=== PATIENT | male | born 1990 | race Caucasian/White ===

== ENCOUNTER 2017-03-30 14:15 | Inpatient (IN) ==
[2017-03-30 14:57] LABS: Hematocrit 47.4 % (37.5-50.1); Hemoglobin 15.1 g/dL (12.9-16.9); Mean Corpuscular HGB Conc 31.9 g/dL (31.6-35.5); Mean Corpuscular Hemoglobin 31.3 pg (28.0-33.3); Mean Corpuscular Volume 98.1 fL (83.0-100.0); Mean Platelet Volume 11.6 fL (9.4-12.4); Platelet Count 273 K/mcL (140-400); Red Blood Count 4.83 M/mcL (4.19-5.50); Red Cell Distribution Width 12.7 % (11.5-14.5)
[2017-03-30 15:10] LABS: Acetaminophen < 1.0 mcg/mL (10-30); BUN/Creatinine Ratio 13 (6-26); Blood Urea Nitrogen 31 mg/dL (6-20); Calcium 9.2 mg/dL (8.6-10.3); Carbon Dioxide 23 mEq/L (23-29); Chloride 101 mEq/L (98-107); Ethanol < 10 mg/dL (0-10); Glucose 104 mg/dL (70-105); Osmolality,Calculated 293 (280-300); Potassium 8.5 mEq/L (3.5-5.1); Salicylate < 5.0 mg/dL (15.0-30.0); Sodium 138 mEq/L (136-145); eGFR For African Americans 38 (> 60); eGFR For Non-African Americans 32 (> 60)
[2017-03-30] MEDS ORDERED: 0.9 % Sodium Chloride 1,000 ML ONE ×2 (15:14→15:27)
[2017-03-30] MEDS ORDERED: Insulin Human Regular 10 UNIT in 0.9 % Sodium Chloride 10 ML IV ONE (15:20)
[2017-03-30] MEDS ORDERED: Albuterol 2.5 MG/3 ML NEBULIZER IH ONE (15:21)
[2017-03-30] MEDS ORDERED: *HR* Dextrose 50 % in Water (Syg) 50 ML SYRINGE IVP ONE (15:45)
[2017-03-30 15:49] LABS: Creatine Kinase 5811 Units/L (30-223)
--- NOTE | 2017-03-30 15:51 | Emergency Department Note ---
START Narrative - START START: I examined this patient and my medical decision-making was reviewed with the MANAGER BOOKS/PA/Advanced Practice Nurse/Resident Physician. I agree with the documented findings, disposition and treatment plan as described except to the extent set forth below. ED attending: Patient's emergency medicine resident Dr. FRANC GOMES Please see copy of this note for H&P evaluation and management and ED disposition. We both had independent hygh-vs-ygma time in contact with this patient. Briefly: 26 year old male in police custody by EMS was found down by his roommate, well-known history of illicit substance use and abuse. He was somnolent upon arrival and slightly hypotensive with a systolic in the 90s. He was slightly pale and diaphoretic. IV access was established there were no track lane seen on his arms, police service technician said that this person usually snorts his drugs. Accu-Chek glucose was 88. Patient is given 2 L normal saline. EKG shows sinus tachycardia with some peaked T waves in the lateral leads however there is no old EKG available for comparison. There is normal QT corrected and normal QRS duration. Of note critically the following elevations are present at this time notified by lab: Potassium was 8.5 and it was confirmed not hemolyzed. CK was approximately 5100. Patient will continue to get IV saline boluses he got calcium gluconate insulin and dextrose for hyperkalemia protocol. Providing 50 minutes of critical care service with this patient, admission and anticipated, head CT and other labs
[2017-03-30 16:04] LABS: Amphetamine Screen,Urine Negative ng/mL (Cutoff=1000); Barbiturate Screen,Urine Negative ng/mL (Cutoff=200); Benzodiazepines Screen,Urine Negative ng/mL (Cutoff=200); Cannabinoid Screen,Urine Positive ng/mL (Cutoff = 50); Cocaine Screen,Urine Positive ng/mL (Cutoff= 300); Opiate Screen,Urine Positive ng/mL (Cutoff=300); Phencyclidine Screen,Urine Negative ng/mL (Cutoff=25)
[2017-03-30] MEDS ORDERED: 0.9 % Sodium Chloride 1,000 ML IVC ONE (16:25)
[2017-03-30] MEDS ORDERED: Sodium Bicarbonate 150 MEQ in D5% in Water 1,000 ML IVC STA (16:28)
[2017-03-30 16:32] LABS: VBG HCO3 20 mEq/L (21-27); VBG PCO2 47 mmHg (41-51); VBG PH 7.24 pH Units (7.32-7.42); VBG PO2 199 mmHg (25-50)
--- NOTE | 2017-03-30 16:32 | Emergency Department Note ---
Disposition Clinical Impression: Hyperkalemia, Drug abuse Rhabdomyolysis Qualifiers: Rhabdomyolysis type: non-traumatic Qualified Code(s): M62.82 - Rhabdomyolysis Pneumothorax Qualifiers: Pneumothorax type: unspecified pneumothorax Qualified Code(s): J93.9 - Pneumothorax, unspecified Disposition: Admitted As Inpatient Condition: Good General Adult HPI - General Chief complaint: ED Medical Clearance Stated complaint: drug use Time Seen by Provider: 03/30/17 14:24 Source: EMS Limitations: no limitations Nursing Notes Reviewed: Yes Vital Signs Reviewed: Yes - History of Present Illness HPI Narrative: Patient presents by police for evaluation of altered mental status. They were called for him being unable to wake up while he was sleeping on his friend's couch. Patient's last known well was yesterday. Upon arrival in prior to giving Narcan they did a sternal rub and the patient woke up and was responsive. The patient was placed on a cot and initial triage labs were drawn. Patient's basic metabolic panel with potassium of 8. Not hemolyzed. Peaked T waves on EKG. Calcium, insulin and dextrose and albuterol have been given. Patient complains of not being able to hear. Patient states that he drank a lot of [place] yesterday. Patient does not admit to other drug use however the police are familiar with him and says that he will snort whatever he can get his hands on. Is known to have cocaine, gabapentin, marijuana in his system. Patient has no complaints of chest pain shortness of breath or belly pain is time. Pain Scale: 0 - Related Data Home Medications Medication Instructions Recorded Confirmed No Known Home Drugs 03/30/17 03/30/17 Allergies Allergy/AdvReac Type Severity Reaction Status Date / Time No Known Allergies Allergy Verified 03/30/17 15:20 Limitations: ROS unobtainable due to patients medical condition Past Medical History - Past Medical History Medical history: Reports: non-contributory Psychiatric history: Reports: no psych history - Social History Smoking Status: Unknown if ever smoked Smokeless Tobacco Status: No Alcohol use: Reports: unknown Drug use: Reports: IV Drug Use Physical Exam General: Arouses to stimulation. Cannot hear. Appears to be reading lips and answering questions. Head: Normocephalic Atraumatic Eyes: PERRL, EOMI ENT: Airway patent, no stridor; nose exam unremarkable Neck: supple, no meningismus Chest: Lungs clear to auscultation bilateral Cardiac: Regular rhythm, no murmurs, rubs or gallops Abdomen: soft, nontender, nondistended; no guarding, rebound, or tenderness to percussion Musculoskeletal: Calves symmetric, nontender, no palpable cord Skin: No rash, normal skin tone Neuro: Alert and Oriented to person, place, and time; No focal deficit, CN 2-12 symmetric and intact - General Limitations: no limitations Course - Reevaluation(s) Reevaluation #1: Patient is improved with medications. hearing continues to improve. Patient will receive head CT, sodium bicarbonate drip, admission. Reevaluation #2: During evaluation for low oxygen level the patient was found to have a right pneumothorax with greater than 3 cm of collapse. Patient will require chest tube. The patient mental status has improved and he understands the need for chest tube. Patient signed informed consent and agrees to moderate sedation as he is anxious and is moving about and potentially causing more harm to himself or staff. Small caliber chest tube was placed without event. The patient tolerated the procedure well. No complications. Vital Signs Temperature 98 F 03/30/17 14:19 Pulse Rate 114 03/30/17 14:19 Respiratory Rate 8 03/30/17 14:19 Blood Pressure 109/75 03/30/17 14:19 O2 Sat by Pulse Oximetry 80 03/30/17 14:19 Temperature 98.8 F 03/30/17 23:26 Pulse Rate 87 03/30/17 23:26 Respiratory Rate 14 03/30/17 23:26 Blood Pressure 125/80 03/30/17 23:26 O2 Sat by Pulse Oximetry 99 03/30/17 23:26 Oxygen Delivery Oxygen Delivery Nasal Cannula Procedures - Chest Tube Chest Tube 1 Chest Tube Location: right Size of Tube (cm): 7 Chest Tube Prep: sterile drapes applied, other Local Anesthetic: lidocaine 1%, with epi Incision Made With: #11 blade Post Procedure: sutured to skin, sterile dressing applied Tube Drainage: none Post Procedure CXR?: Yes Patient Tolerated Procedure: Yes Medical Decision Making - Lab Data Result diagrams: 03/30/17 14:41 03/30/17 22:07 Lab Results 03/30/17 03/30/17 03/30/17 Range/Units 14:41 14:41 15:49 WBC 21.1 H (4.3-11.1) K/mcL RBC 4.83 (4.19-5.50) M/mcL Hgb 15.1 (12.9-16.9) g/dL Hct 47.4 (37.5-50.1) % MCV 98.1 (83.0-100.0) fL MCH 31.3 (28.0-33.3) pg MCHC 31.9 (31.6-35.5) g/dL RDW 12.7 (11.5-14.5) % Plt Count 273 (140-400) K/mcL MPV 11.6 (9.4-12.4) fL Immature Gran % 0.5 (0-4) % Seg Neutrophils % 85.2 % Lymphocytes % 3.5 % Monocytes % 10.7 % Eosinophils % 0.0 % Basophils % 0.1 % Neutrophils # 17.7 H (1.6-8.9) K/mcL Lymphocytes # 0.7 (0.6-4.6) K/mcL Monocytes # 2.2 H (0.0-1.3) K/mcL Eosinophils # 0.0 (0.0-0.6) K/mcL Basophils # 0.0 (0.0-0.2) K/mcL VBG pH (7.32-7.42) pH Units VBG pCO2 (41-51) mmHg VBG pO2 (25-50) mmHg VBG HCO3 (21-27) mEq/L Sodium 138 (136-145) mEq/L Potassium 8.5 H* (3.5-5.1) mEq/L Chloride 101 (98-107) mEq/L Carbon Dioxide 23 (23-29) mEq/L BUN 31 H (6-20) mg/dL Creatinine 2.46 H (0.70-1.30) mg/dL Est GFR ( Amer) 38 L (> 60) Est GFR (Non-Af Amer) 32 L (> 60) BUN/Creatinine Ratio 13 (6-26) Glucose 104 (70-105) mg/dL Calculated Osmolality 293 (280-300) Calcium 9.2 (8.6-10.3) mg/dL Total Bilirubin (0.3-1.0) mg/dL Direct Bilirubin (0.0-0.2) mg/dL Indirect Bilirubin (0.0-1.2) mg/dL AST (13-39) Units/L ALT (7-52) Units/L Alkaline Phosphatase (34-104) Units/L Creatine Kinase 5811 H (30-223) Units/L Serum Total Protein (6.4-8.9) g/dL Albumin (3.5-5.7) g/dL Globulin (2.4-3.5) g/dL Albumin/Globulin Ratio (1.1-2.2) Urine Color (Yellow) Urine Clarity (Clear) Urine pH (5.0-8.0) pH Units Ur Specific Ham[place] (1.010-1.025) Urine Protein (Neg-Trace) mg/dL Urine Glucose (UA) (Normal) mg/dL Urine Ketones (Negative) mg/dL Urine Blood (Negative) Urine Nitrite (Negative) Urine Bilirubin (Negative) Urine Urobilinogen (Normal) mg/dL Ur Leukocyte Esterase (Negative) Urine Microscopic RBC (0-3) per hpf Urine Microscopic WBC (0-3) per hpf Ur Squamous Epith Cells (None-Few) per lpf Urine Bacteria (None-Few) per hpf Hyaline Casts (None-Few) per lpf Ur Culture Indicated? (NO) Salicylates < 5.0 L (15.0-30.0) mg/dL Urine Opiates Screen Positive H (Gepplq=333) ng/mL Acetaminophen < 1.0 L (10-30) mcg/mL Ur Barbiturates Screen Negative (Xlcqyt=108) ng/mL Ur Phencyclidine Scrn Negative (Cutoff=25) ng/mL Ur Amphetamines Screen Negative (Pzypef=9023) ng/mL U Benzodiazepines Scrn Negative (Pbajke=852) ng/mL Urine Cocaine Screen Positive H (Cutoff= 300) ng/mL U Marijuana (THC) Screen Positive H (Cutoff = 50) ng/mL Ethyl Alcohol < 10 (0-10) mg/dL 03/30/17 03/30/17 03/30/17 Range/Units 15:49 16:28 16:36 WBC (4.3-11.1) K/mcL RBC (4.19-5.50) M/mcL Hgb (12.9-16.9) g/dL Hct (37.5-50.1) % MCV (83.0-100.0) fL MCH (28.0-33.3) pg MCHC (31.6-35.5) g/dL RDW (11.5-14.5) % Plt Count (140-400) K/mcL MPV (9.4-12.4) fL Immature Gran % (0-4) % Seg Neutrophils % % Lymphocytes % % Monocytes % % Eosinophils % % Basophils % % Neutrophils # (1.6-8.9) K/mcL Lymphocytes # (0.6-4.6) K/mcL Monocytes # (0.0-1.3) K/mcL Eosinophils # (0.0-0.6) K/mcL Basophils # (0.0-0.2) K/mcL VBG pH 7.24 L (7.32-7.42) pH Units VBG pCO2 47 (41-51) mmHg VBG pO2 199 H (25-50) mmHg VBG HCO3 20 L (21-27) mEq/L Sodium 138 (136-145) mEq/L Potassium 6.3 H D (3.5-5.1) mEq/L Chloride 108 H (98-107) mEq/L Carbon Dioxide 22 L (23-29) mEq/L BUN 32 H (6-20) mg/dL Creatinine 2.11 H (0.70-1.30) mg/dL Est GFR ( Amer) 46 L (> 60) Est GFR (Non-Af Amer) 38 L (> 60) BUN/Creatinine Ratio 15 (6-26) Glucose 165 H (70-105) mg/dL Calculated Osmolality 297 (280-300) Calcium 8.3 L (8.6-10.3) mg/dL Total Bilirubin 0.6 (0.3-1.0) mg/dL Direct Bilirubin 0.2 (0.0-0.2) mg/dL Indirect Bilirubin 0.4 (0.0-1.2) mg/dL AST 132 H (13-39) Units/L ALT 100 H (7-52) Units/L Alkaline Phosphatase 60 (34-104) Units/L Creatine Kinase (30-223) Units/L Serum Total Protein 6.8 (6.4-8.9) g/dL Albumin 4.0 (3.5-5.7) g/dL Globulin 2.8 (2.4-3.5) g/dL Albumin/Globulin Ratio 1.4 (1.1-2.2) Urine Color Yellow (Yellow) Urine Clarity Clear (Clear) Urine pH 6.0 (5.0-8.0) pH Units Ur Specific [place] 1.024 (1.010-1.025) Urine Protein 30 H (Neg-Trace) mg/dL Urine Glucose (UA) Normal (Normal) mg/dL Urine Ketones Negative (Negative) mg/dL Urine Blood Large H (Negative) Urine Nitrite Negative (Negative) Urine Bilirubin Small H (Negative) Urine Urobilinogen Normal (Normal) mg/dL Ur Leukocyte Esterase Negative (Negative) Urine Microscopic RBC 0-3 (0-3) per hpf Urine Microscopic WBC 3-5 H (0-3) per hpf Ur Squamous Epith Cells Many H (None-Few) per lpf Urine Bacteria None Seen (None-Few) per hpf Hyaline Casts None Seen (None-Few) per lpf Ur Culture Indicated? NO (NO) Salicylates (15.0-30.0) mg/dL Urine Opiates Screen (Qedrsn=480) ng/mL Acetaminophen (10-30) mcg/mL Ur Barbiturates Screen (Ybastz=541) ng/mL Ur Phencyclidine Scrn (Cutoff=25) ng/mL Ur Amphetamines Screen (Exbgau=4396) ng/mL U Benzodiazepines Scrn (Tzdnfn=867) ng/mL Urine Cocaine Screen (Cutoff= 300) ng/mL U Marijuana (THC) Screen (Cutoff = 50) ng/mL Ethyl Alcohol (0-10) mg/dL
[2017-03-30] MEDS ORDERED: Naloxone 0.4 MG/ML INJ IVP ONE (16:35)
[2017-03-30] MEDS ORDERED: Ondansetron 4 MG/2 ML VIAL IVP ONE (16:36)
[2017-03-30 17:16] LABS: Albumin/Globulin Ratio 1.4 (1.1-2.2); Bilirubin,Direct 0.2 mg/dL (0.0-0.2); Bilirubin,Indirect 0.4 mg/dL (0.0-1.2); Bilirubin,Total 0.6 mg/dL (0.3-1.0); Calcium 8.3 mg/dL (8.6-10.3); Globulin 2.8 g/dL (2.4-3.5); Potassium 6.3 mEq/L (3.5-5.1); Total Protein 6.8 g/dL (6.4-8.9)
[2017-03-30] MEDS ORDERED: Lidocaine/EPI 1:100k 1% 20 ML VIAL INFILT ONE (18:35)
[2017-03-30] MEDS ORDERED: Lidocaine -MPF 1% 2 ML VIAL ONE (18:38)
[2017-03-30] MEDS ORDERED: Lidocaine/EPI 1:100k 1% 30 ML VIAL ONE (18:39)
[2017-03-30] MEDS ORDERED: *HR* FentaNYL (PF) 100 MCG/2 ML VIAL IVP ONE (18:49)
[2017-03-30] MEDS ORDERED: *HR* Midazolam HCl 2 MG/2 ML VIAL IVP ONE (18:49)
[2017-03-30 20:04] LABS: Bilirubin,Urine Small (Negative); Blood,Urine Large (Negative); Clarity,Urine Clear (Clear); Color,Urine Yellow (Yellow); Glucose,Urine (UA) Normal (Normal); Ketones,Urine Negative (Negative); Leukocyte Esterase,Urine Negative (Negative); Nitrite,Urine Negative (Negative); Protein,Urine 30 mg/dL (Neg-Trace); Specific Gravity,Urine 1.024 (1.010-1.025); Urobilinogen,Urine Normal (Normal)
[2017-03-30 20:06] LABS: Bacteria,Urine None Seen per hpf (None-Few); RBC,Urine 0-3 per hpf (0-3); Squamous Epithelial Cell,Urine Many per lpf (None-Few)
[2017-03-30 20:20] LABS: Hyaline Casts,Urine None Seen per lpf (None-Few)
--- NOTE | 2017-03-30 20:22 | Internal Med History&Physical ---
<Yosef Barrow - Last Filed: 03/30/17 22:21> Date of Encounter: 03/30/17 Time of Encounter: 20:20 Assessment and Plan (1) Drug abuse Current visit: Yes Status: Acute Patient with known history of drug abuse. patient found unresponsive at home by friend. Patient was able to be aroused with sternal rub by EMS prior to narcan administration. Patient given Narcan in ED patient on sodium bicarb drip. Utox positive for cocaine, opioids, and marijuana patient somnolent, able to be aroused but not consistently answering questions or participating in exam. patient mentation improved. Patient admits to marijuana, but denies knowing where opioids and cocaine came from. He reports hx of abuse. Vital signs stable sating well on nasal canula continue supportive treatment. (2) Pneumothorax Current visit: Yes Status: Acute Patient with hypoxia in ED. pneumothorax discovered on CXR Unclear cause, patient denies trauma, but does not remember anything that lead him to come into the hospital. Chest tube placed in ED with improvement of pneumothorax on subsequent CXR. continue chest tube to suction. Qualifiers: Pneumothorax type: unspecified pneumothorax Qualified Code(s): J93.9 - Pneumothorax, unspecified (3) Hyperkalemia Current visit: Yes Status: Acute Pt with Hyperkalemia on lab assessment K 8.2 on admission with peaked T waves on EKG patient given albuterol, calcium gluconate, insulin, Kayexcelate. on repeat testing K 6.3 EKG with improvement in Peaked T waves Will check K again now and BMP in the morning. (4) Rhabdomyolysis Current visit: Yes Status: Acute Patient with CK 5811 Patient with overdose, found down. patietn denies remembering what happened. continue IV fluid rehydration. Qualifiers: Rhabdomyolysis type: non-traumatic Qualified Code(s): M62.82 - Rhabdomyolysis (5) SIRS (systemic inflammatory response syndrome) Current visit: Yes Status: Acute Patient met SIRS criteria based on WBC count of 21.1 and Tachycardia to 100. No clear source of infection. CXR no signs of infection, urine no signs of infection, No diarrhea, dysuria, abd pain, no signs of cellulitis on exam. Blood cultures and LA ordered. CBC was ordered without diff. Called lab and added on diff. Broad spectrum abx (vanc and zosyn) ordered. Likely secondary to drug OD, but elevated WBC raises concern for Sepsis. will continue to monitor. If blood cultures positive consider ROBBIN to rule out endocarditis, however low suspicion as per hx pt snorts not injects his drugs, and no other minor rocha criteria met. Internal Medicine - H&P: HPI Chief complaint: OD, Pneumothorax Admitted From: Emergency Dept Plans for Post Hospital Care: Home History of present illness: Mr. Villatoro is a 26 year old male c known hx of drug abuse presents to the ED brought in by ems after being found unresponsive on friend's couch. Patient reports not remembering what happened. Last thing he remembers is sitting on the couch. Patient's UDS was positive for Coacine, opioids, and THC. Patient admits to THC, but states he does not know how the other substances got in his urine. He reports he used to abuse drugs but has tried to stay clean. He does admit to ETOH use last night. Patient was foudn to be hyperkalemic to 8.5 with peaked T waves on EKG. Patient given albuterol, calcium gluconate, insulin, Kayexcelate. On repeat testing K 6.3 EKG with improvement in Peaked T waves. Patient was hypoxic in the ED requiring supplemental oxygen. CXR revealed pneumothorax on the R. Chest tube placed with improvement of pneumothorax. Patient denies trauma, prior hx of pneumothorax. Patient reprots improvemnt in SOB, deneis chest pain, Nause, Diarrhea, dysuria, fever, cough, cold sxs. Past Med Surg Social Fam HX - Past Medical History Medical history: non-contributory Psychiatric history: no psych history - Social History Smoking Status: Unknown if ever smoked Smokeless Tobacco Status: No Alcohol use: unknown Drug use: IV Drug Use Internal Medicine - H&P: Meds No Known Home Drugs 03/30/17 [History] 3 Allergy/AdvReac Type Severity Reaction Status Date / Time No Known Allergies Allergy Verified 03/30/17 15:20 All Systems PM: A 10-system review of systems was performed and is negative for pertinent findings except as documented above in the HPI. - Constitutional Vitals: Temp Pulse Resp BP Pulse Ox 98 F 97 18 136/79 89 03/30/17 14:19 03/30/17 18:32 03/30/17 20:01 03/30/17 20:01 03/30/17 18:32 General appearance: Present: A&O X 3, no acute distress, answers questions appropriately - Head Head exam: Present: atraumatic, normocephalic - Eye Eye exam: Present: EOMI, PERRL, conjuntiva pink, sclera anicteric Pupils: Present: PERRL - Neck Neck exam general surgery: Present: supple, trachea midline. Absent: lymphadenopathy - Respiratory Respiratory exam: Present: decreased breath sounds (R lateral lung), CTAB. Absent: accessory muscle use, rales, rhonchi, wheezes - Cardiovascular Cardiovascular exam: Present: RRR, +S1, +S2. Absent: diastolic murmur, gallop, rubs, systolic murmur - GI/Abdominal GI/Abdominal exam: Present: normal bowel sounds, soft, no peritoneal signs. Absent: distended, tenderness - Extremities Exam Extremities exam: Present: warm, radial pulses palpable and symmetrical. Absent : calf tenderness, cyanotic, pedal edema - Neurological Exam Neurological exam: Present: CN II-XII intact, oriented X3, no focal deficits. Absent: facial droop, speech deficit - Skin Skin exam: Present: dry, intact Internal Med - H&P Results - Labs CBC & Chem 7: 03/30/17 14:41 03/30/17 16:36 - Impressions ITS Impressions Chest X-Ray 03/30/17 19:33 IMPRESSION: Placement of small bore pleural catheter with evacuation of the pneumothorax. D/ / Ridge Abdi MD / Ridge Abdi MD Interpreting Provider: Ridge Abdi MD <Rai Garland P - Last Filed: 03/31/17 04:21> Date of Encounter: 03/31/17 Internal Medicine - H&P: HPI History of present illness: Mr. Villatoro is a 26 year old male All Systems PM: A 10-system review of systems was performed and is negative for pertinent findings except as documented above in the HPI. - Constitutional Vitals: Temp Pulse Resp BP Pulse Ox 98.9 F 101 16 114/80 92 03/31/17 03:33 03/31/17 03:33 03/31/17 03:33 03/31/17 03:33 03/31/17 03:33 Internal Med - H&P Results - Labs CBC & Chem 7: 03/30/17 14:41 03/30/17 22:07 Labs: BMP 03/30/17 22:07 Potassium 5.6 H - Impressions ITS Impressions Chest X-Ray 03/30/17 19:33 IMPRESSION: Placement of small bore pleural catheter with evacuation of the pneumothorax. D/ / Ridge Abdi MD / Ridge Abdi MD Interpreting Provider: Ridge Abdi MD - Attending Attestation I examined this patient and my medical decision-making was reviewed with the Resident Physician. I agree with the documented findings, disposition and treatment plan as described except to the extent set forth below. i agree with resident physician assessment and plan
[2017-03-30 21:49] LABS: Basophils % 0.1 %; Immature Granulocytes % 0.5 % (0-4); Lymphocytes # 0.7 K/mcL (0.6-4.6); Lymphocytes % 3.5 %; Monocytes # 2.2 K/mcL (0.0-1.3); Monocytes % 10.7 %; Neutrophils # 17.7 K/mcL (1.6-8.9); Segmented Neutrophils % 85.2 %
[2017-03-31] MEDS: 0.9 % Sodium Chloride 1,000 ML IVC SCH ×2 (01:03→11:08)
[2017-03-31 04:10] LABS: Basophils % 0.1 %; Hematocrit 35.7 % (37.5-50.1); Immature Granulocytes % 0.5 % (0-4); Lymphocytes # 1.2 K/mcL (0.6-4.6); Mean Corpuscular HGB Conc 33.6 g/dL (31.6-35.5); Mean Corpuscular Hemoglobin 31.5 pg (28.0-33.3); Mean Corpuscular Volume 93.7 fL (83.0-100.0); Mean Platelet Volume 11.8 fL (9.4-12.4); Monocytes # 1.1 K/mcL (0.0-1.3); Monocytes % 8.3 %; Neutrophils # 11.1 K/mcL (1.6-8.9); Platelet Count 180 K/mcL (140-400); Red Blood Count 3.81 M/mcL (4.19-5.50); Red Cell Distribution Width 12.7 % (11.5-14.5); Segmented Neutrophils % 82.1 %
[2017-03-31 04:50] LABS: BUN/Creatinine Ratio 18 (6-26); Blood Urea Nitrogen 26 mg/dL (6-20); Carbon Dioxide 24 mEq/L (23-29); Chloride 106 mEq/L (98-107); Glucose 119 mg/dL (70-105); Osmolality,Calculated 294 (280-300); Potassium 4.3 mEq/L (3.5-5.1); Sodium 139 mEq/L (136-145); eGFR For African Americans > 60 (> 60); eGFR For Non-African Americans > 60 (> 60)
[2017-03-31] MEDS ORDERED: Nicotine 14 MG PATCH.TD24 TD SCH (09:15)
[2017-03-31] MEDS ORDERED: Ketorolac 30 MG/ML VIAL IVP ONE (09:41)
--- NOTE | 2017-03-31 10:08 | Procedure Note ---
Date of procedure: 03/31/17 Pre-op diagnosis: Pneumothorax Post-op diagnosis: same (Pneumothorax) Procedure: After explaining the procedure to patient and patient agreed and gave verbal consent and checking case smallbore pneumothorax to it was partially out and also can in my opinion that needed to come out because most likely is not working and with suture removal chest was easily removed without immediate complications and patient actually felt better after that. Checks x-ray as ordered for any complications. Anesthesia: none Surgeon: Cash Martínez Was there an advertising sales assistant present: No Estimated blood loss (cc): 0 Specimen: none Pathology: none sent Condition: stable
--- NOTE | 2017-03-31 10:10 | Pulmonology Consult Note ---
Date of Encounter: 03/31/17 Time of Encounter: 10:00 Assessment and Plan (1) Pneumothorax Current Visit: Yes Status: Resolved Patient was evaluated and is not clear what happened and why he has pneumothorax since patient does not remember anything and I have explained to him is unusual with a young man to have this degree of pneumothorax which has resolved on x-ray to my interpretation and because of the chest tube was partially out anyway, chest tube was removed without immediate complications and chest x-ray for follow-up was ordered. I have explained to him he might need a larger chest tube if pneumothorax still exist, if not then he will still need to be monitored at least for few hours before he goes home. Plan of care discussed with primary team thank you very much for consultation. Qualifiers: Pneumothorax type: unspecified pneumothorax Qualified Code(s): J93.9 - Pneumothorax, unspecified (2) Tobacco abuse Current Visit: Yes Status: Chronic She was advised to quit smoking (3) Tobacco abuse counseling Current Visit: Yes Status: Chronic History of Present Illness Consult date: 03/31/17 Requesting physician: Chris Hammer Reason for consult: pneumothorax Chief complaint: Pneumothorax and overdose History of present illness: This is a pleasant 26-year-old male with history of drug abuse presented to emergency room and he was found to have pneumothorax. Patient does not remember any trauma and he has history of smoking but no history of pneumothorax in the past. He denies any significant coughing or wheezing and he was unresponsive and he does not remember any of what happened prior to that. Patient wanting to go home and I was consulted by hospitalist to evaluate the patient. Patient has some chest discomfort from this site of the chest tube insertion. He denies any other symptoms. Past Med Surg Social Fam HX - Past Medical History Medical history: non-contributory Psychiatric history: no psych history - Social History Smoking Status: Unknown if ever smoked Packs per day: 1 Smokeless Tobacco Status: No Alcohol use: unknown Drug use: IV Drug Use Medications and Allergies No Known Home Drugs 03/30/17 [History] 3 Allergy/AdvReac Type Severity Reaction Status Date / Time No Known Allergies Allergy Verified 03/30/17 15:20 All Systems: A 10-system review of systems was performed and is negative for pertinent findings except as documented above in the HPI. Physical Examination Vital Signs: Vital Signs, Last 4 Hours Temp Pulse Resp BP Pulse Ox 03/31/17 08:39 88 03/31/17 07:58 98.9 F 92 16 124/76 94 General appearance: no acute distress Eyes: nonicteric ENT: oropharynx moist Neck: supple Effort: normal Inspection: normal Auscultation: right: other (Ssmall chest tube in the right side), bilateral: clear Cardiovascular: regular rate and rhythm Gastrointestinal: normoactive bowel sounds Extremities: no cyanosis normal mental status, non-focal exam mood appropriate Results - Laboratory Findings CBC and BMP: 03/31/17 03:43 03/31/17 03:43 Abnormal lab findings: Abnormal lab results WBC 13.5 K/mcL (4.3-11.1) H 03/31/17 03:43 RBC 3.81 M/mcL (4.19-5.50) L 03/31/17 03:43 Hgb 12.0 g/dL (12.9-16.9) L D 03/31/17 03:43 Hct 35.7 % (37.5-50.1) L 03/31/17 03:43 Neutrophils # 11.1 K/mcL (1.6-8.9) H 03/31/17 03:43 VBG pH 7.24 pH Units (7.32-7.42) L 03/30/17 16:28 VBG pO2 199 mmHg (25-50) H 03/30/17 16:28 VBG HCO3 20 mEq/L (21-27) L 03/30/17 16:28 BUN 26 mg/dL (6-20) H 03/31/17 03:43 Creatinine 1.41 mg/dL (0.70-1.30) H 03/31/17 03:43 Glucose 119 mg/dL (70-105) H 03/31/17 03:43 Calcium 8.0 mg/dL (8.6-10.3) L 03/31/17 03:43 AST 132 Units/L (13-39) H 03/30/17 16:36 ALT 100 Units/L (7-52) H 03/30/17 16:36 Creatine Kinase 5811 Units/L (30-223) H 03/30/17 14:41 Urine Protein 30 mg/dL (Neg-Trace) H 03/30/17 15:49 Urine Blood Large (Negative) H 03/30/17 15:49 Urine Bilirubin Small (Negative) H 03/30/17 15:49 Urine Microscopic WBC 3-5 per hpf (0-3) H 03/30/17 15:49 Ur Squamous Epith Cells Many per lpf (None-Few) H 03/30/17 15:49 Salicylates < 5.0 mg/dL (15.0-30.0) L 03/30/17 14:41 Urine Opiates Screen Positive ng/mL (Kktlfa=836) H 03/30/17 15:49 Acetaminophen < 1.0 mcg/mL (10-30) L 03/30/17 14:41 Urine Cocaine Screen Positive ng/mL (Cutoff= 300) H 03/30/17 15:49 U Marijuana (THC) Screen Positive ng/mL (Cutoff = 50) H 03/30/17 15:49 - Diagnostic Findings Chest x-ray: report reviewed, image reviewed - Clinical Findings Intake & Output: Intake & Output 03/30/17 03/31/17 03/31/17 23:59 07:59 15:59 Intake Total 350 / 2580 Output Total 0 / 0 Balance 350 / 1905 0 / 0 Consult Discharge Plan - Plan Referrals: NONE,PCP [Primary Care Provider] - Sivan Alicea [Family Provider] -
[2017-03-31 11:28] LABS: Creatine Kinase 14844 Units/L (30-223)
[2017-03-31 12:07] VITALS: BP 121/75
[2017-03-31] MEDS ORDERED: Aminoglycoside Consult 1 EACH MC ONE (15:10)
--- NOTE | 2017-03-31 15:52 | Discharge Summary ---
Date of Encounter: 03/31/17 Time of Encounter: 11:00 - Discharge Diagnosis (1) Drug abuse Priority: Primary Status: Acute (2) Hyperkalemia Priority: Secondary Status: Acute (3) Rhabdomyolysis Priority: Primary Status: Acute Qualifiers: Rhabdomyolysis type: non-traumatic Qualified Code(s): M62.82 - Rhabdomyolysis (4) SIRS (systemic inflammatory response syndrome) Priority: Secondary Status: Acute (5) Tobacco abuse Priority: Secondary Status: Chronic (6) Pneumothorax Priority: Primary Status: Resolved Qualifiers: Pneumothorax type: unspecified pneumothorax Qualified Code(s): J93.9 - Pneumothorax, unspecified - Discharge Medications Home Medications: No Known Home Drugs 03/30/17 [History] Allergies/Adverse Reactions: 3 Allergy/AdvReac Type Severity Reaction Status Date / Time No Known Allergies Allergy Verified 03/30/17 15:20 Date of admission: 03/31/17 04:19 Primary care physician: PCP NONE Consults: 03/31/17 08:59 Consult to Pulmonology [CONS] Routine Consulting Provider: [facility] Reason for Consult: Chest tube management Call Completed: Yes - Patient Status Disposition: Left Against Medical Advice Condition: Good - Discharge Instructions Follow Up With: NONE,PCP [Primary Care Provider] - Sivan Alicea [Family Provider] - Hospital course: Patient is a 26-year-old male with past medical history significant for drug abuse who reported to the ER on 03/31/17 after being found unresponsive. In the ER, patient was found positive for cocaine, opioids, and THC. She was also found to have a spontaneous pneumothorax and chest tube was placed in the ER. She was admitted to medical surgical floor for further management. During patients hospital stay pulmonology was consulted and chest tube was removed. Patient was receiving IV fluids for acute renal failure secondary to rhabdomyolysis. Patient however decided to leave AMA. - Time Spent with Patient Total time spent providing and/or coordinating discharge services: Less than 30 minutes - Constitutional Vitals: Temp Pulse Resp BP Pulse Ox 98.6 F 93 16 121/75 93 03/31/17 12:05 03/31/17 12:05 03/31/17 12:05 03/31/17 12:05 03/31/17 12:05 General appearance: Present: A&O X 3, no acute distress, answers questions appropriately - Respiratory Respiratory exam: Present: CTAB. Absent: accessory muscle use, rales, rhonchi, wheezes - Cardiovascular Cardiovascular exam: Present: RRR, +S1, +S2. Absent: diastolic murmur, gallop, rubs, systolic murmur
--- NOTE | 2017-04-04 02:06 | Electrocardiograph Report ---
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
--- NOTE | 2017-04-04 02:08 | Electrocardiograph Report ---
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
== END 2017-03-31 15:11 | disposition left against medical advice (07) | DRG 143 ==
LOC: 2NNU 14:15 → EMEROO 14:15 → 2NNU 20:10
PROVIDERS: ADMIT Internal Medicine; ATTEND Hospitalist